=== PATIENT | female | born 1995 | race Caucasian/White ===

== ENCOUNTER 2016-10-18 11:07 | Emergency (ER) | payer BC ==
[2016-10-18] MEDS ORDERED: Ketorolac 60 MG/2 ML SDV IM ONE (11:16)
[2016-10-18] MEDS ORDERED: diphenhydrAMINE 50 MG/ML SDV IM ONE (11:17)
[2016-10-18] MEDS ORDERED: Ondansetron 4 MG Tab.DIS PO ONE (11:17)
[2016-10-18 12:01] VITALS: BP 116/79
--- NOTE | 2016-10-19 07:44 | ER ---
Date of Service: 10/18/2016 SUBJECTIVE: Arleth presents to the emergency room with complaints of migraine headache. She states this is similar to migraines she has experienced in the past. She states that she is extremely nauseated and has been vomiting. She did take her Amerge and Phenergan which did not help with her symptoms. She is currently taking Inderal and Topamax and states that her migraines have been under relatively good control. She is not experiencing any fever or chills. She denies any neck stiffness or head trauma. She again is nauseated and vomiting and does have a flashing light aura and photophobia. PHYSICAL EXAMINATION: General: A 21-year-old female patient, in no acute distress. Vital Signs: Blood pressure is 116/79, pulse rate 72, temperature is 35.7, respiratory rate is 22, O2 saturation is 97%. Skin: Warm, pink, and dry. HEENT: Eyes: PERRLA. Extraocular movements are intact. Ears: TMs are clear. Mouth: Oral mucosa is moist. Lungs: Clear to auscultation. Heart: Regular rate and rhythm. Abdomen: Soft, nontender. There is no hepatosplenomegaly or masses noted. Neurologic: Cranial nerves II through XII are intact. Her speech is fluent. Her gait is within normal limits. She has no pronator drift. Romberg is negative. EMERGENCY ROOM COURSE: The patient was given Thorazine 50 mg, Benadryl 50 mg, and Toradol 30 mg, all intramuscularly. She was also given 4 mg of Zofran ODT. She stated that her pain decreased from approximately 7 down to 2 at the time of discharge. ASSESSMENT: Acute migraine headache. PLAN: The patient will be discharged. Continue with her current medications. Follow up in the clinic in the next 5 to 7 days and return to the emergency room if her symptoms worsen. All questions were answered. MWK: 10/18/2016 18:55:06 MODL: 10/19/2016 00:00:33 /[id number]
== END 2016-10-18 12:10 | disposition home or self-care (01) ==
LOC: VM.ED 11:07
DX: G43.909 Migraine, unspecified, not intractable, without status migrainosus (principal)
CPT/HCPCS: 96372; 99283; A9270; J1200; J1885; J3230